=== PATIENT | female | born 1965 | race Caucasian/White ===

== ENCOUNTER 2018-03-24 08:59 | Inpatient (IN) | payer BC, SELFPAY ==
[2018-03-24] MEDS ORDERED: Acetaminophen 500 MG TAB ONE (10:32)
--- NOTE | 2018-03-24 11:27 | RAD ---
SINGLE VIEW OF THE PELVIS: COMPARISON: None. HISTORY: Mechanical fall this morning with right hip pain. FINDINGS: A single view of the pelvis shows abnormal trabecular pattern in the region of the right femoral neck likely secondary to a minimally displaced right femoral neck fracture. No dislocation is seen. IMPRESSION: Femoral neck fracture. POS: QAMAR
--- NOTE | 2018-03-24 11:28 | RAD ---
TWO VIEWS RIGHT HIP: HISTORY: Mechanical fall this morning with hip pain. FINDINGS: Two views right hip show an impaction fracture of the right femoral neck. No dislocation of the femo ral head is seen. No soft tissue swelling is seen. IMPRESSION: Right femoral neck fracture. POS: DARIEN
[2018-03-24 11:53] LABS: #Basophils 0.1 thou/uL (0.0-0.2); #Eosinphils 0.1 thou/uL (0.0-0.7); %Basophils 0.6 % (0.0-1.0); %Eosinophils 0.8 % (0.0-10.0); %Lymphocytes 15.2 % (21.0-51.0); %Monocytes 7.8 % (0.0-10.0); %Neutrophils 75.6 % (42.0-75.0); Hemoglobin 14.5 g/dL (12.0-16.0); Mean Corpuscular HGB CONC 32.9 g/dL (32.0-36.0); Mean Corpuscular Hemoglobin 30.4 pg (27.0-31.0); Mean Corpuscular Volume 92.3 fL (78.0-98.0); Mean Platelet Volume 9.5 fL (7.4-10.4); Platelet Count 282 thou/uL (130-400); RBC Distribution Width 11.5 % (11.5-14.5); Red Blood Cell (RBC) Count 4.78 mill/uL (4.20-5.40); White Blood Cell (WBC) Count 13.3 thou/uL (4.8-10.8)
[2018-03-24 12:05] LABS: PTT 30.8 SEC (22.9-36.1); Prothrombin Time 13.6 SEC (12.0-14.7)
[2018-03-24 12:20] LABS: ALT (SGPT) 26 U/L (8-55); AST (SGOT) 23 U/L (5-34); Albumin 4.4 g/dL (3.5-5.0); Alkaline Phosphatase 106 U/L (40-150); Anion Gap 16 mmol/L (10-20); BUN (Urea Nitrogen) 15 mg/dL (9.8-20.1); Bilirubin, Total 0.4 mg/dL (0.2-1.2); Calc. Creatinine Clearance 0 mL/min (70-130); Calcium 9.8 mg/dL (7.8-10.44); Carbon Dioxide 23 mmol/L (22-29); Chloride 105 mmol/L (98-107); Estimated GFR-MDRD 73; Glucose 108 mg/dL (70-105); Potassium 3.6 mmol/L (3.5-5.1); Protein, Total 7.4 g/dL (6.0-8.3); Sodium 140 mmol/L (136-145)
[2018-03-24] MEDS ORDERED: Fentanyl 100 MCG/2 ML VIAL ONE ×3 (12:40→15:40)
[2018-03-24] MEDS ORDERED: Morphine 4 MG/ML VIAL SLOW IVP PRN (13:51)
[2018-03-24] MEDS ORDERED: Ondansetron PF 4 MG/2 ML Vial IVP PRN (13:51)
[2018-03-24] MEDS ORDERED: Promethazine HCl 25 MG/ML VIAL IM PRN ×2 (13:51→15:38)
[2018-03-24] MEDS ORDERED: Dextrose 50% Abboject 50 ML SYRINGE SLOW IVP PRN (13:51)
[2018-03-24] MEDS ORDERED: Dextrose 5% in Water 1,000 ML IV PRN (13:51)
[2018-03-24] MEDS ORDERED: hydrALAZINE 20 MG/ML VIAL SLOW IVP PRN (13:51)
[2018-03-24] MEDS ORDERED: Morphine 2 MG/ML SYRINGE SLOW IVP PRN (13:51)
[2018-03-24] MEDS ORDERED: CEFAZOLIN/Water 2 GM/20 ML SYRINGE SLOW IVP SCH ×2 (14:15→15:30)
[2018-03-24] MEDS ORDERED: CEFAZOLIN 2 GM/50 ML BAG ONE (14:21)
[2018-03-24] MEDS ORDERED: CEFAZOLIN 2 GM/50 ML-DEXTROSE 2 GM in Premix Bag 1 BAG IVPB SCH (14:30)
[2018-03-24] MEDS: Sodium Chloride 0.9% 1,000 ML IV SCH ×2 (14:35→23:02)
[2018-03-24] MEDS ORDERED: HYDROmorphone 2 MG/ML VIAL ONE (15:29)
--- NOTE | 2018-03-24 15:31 | RAD ---
TWO VIEWS OF THE RIGHT HIP 03/24/18 COMPARISON: 03/24/18 at 10:47 a.m. HISTORY: Right femoral neck fracture status post pinning. FINDINGS/IMPRESSION: Multiple limited intraoperative fluoroscopic views of the right hip were submitted for interpretation . There are three screws placed spanning the right femoral neck fracture. No perihardware lucency is seen. POS: DARIEN
[2018-03-24] MEDS ORDERED: HYDROmorphone 2 MG/ML VIAL SLOW IVP PRN (15:38)
[2018-03-24] MEDS ORDERED: Promethazine HCl 25 MG/ML VIAL SLOW IVP PRN (15:38)
[2018-03-24] MEDS ORDERED: Ondansetron HCl/PF 4 MG/2 ML Vial IVP PRN (15:38)
[2018-03-24] MEDS ORDERED: PACU-Morphine 4MG/ML VIAL SLOW IVP PRN (15:38)
[2018-03-24] MEDS ORDERED: Ketorolac Tromethamine 30 MG/ML VIAL ONE ×2 (15:40→16:16)
--- NOTE | 2018-03-24 15:42 | CON ---
DATE OF CONSULTATION: 03/24/2018 CHIEF COMPLAINT: Right hip pain. HISTORY OF PRESENT ILLNESS: Michelle is a 52-year-old female who was up late last night approximately 2:30 in the morning. She slipped on water. She fell on a hard tile floor. She landed on her right hip. She had immediate pain in the hip. She was able to arise and take a few steps. However, she had severe pain. She was then able to carry on after that. She did get back to bed. This morning she had ongoing pain and was taken to the emergency department. X-rays demonstrated a femoral neck fracture. She has been admitted to the hospital. Currently, resting comfortably. No other injuries or problems. At baseline, she ambulates well with no assistive device. She is very active. PAST MEDICAL HISTORY: Hypertension. PAST SURGICAL HISTORY: None. MEDICATIONS: Lisinopril. ALLERGIES: EGGS. NO KNOWN DRUG ALLERGIES. FAMILY MEDICAL HISTORY: Noncontributory. REVIEW OF SYSTEMS: Positive for right leg pain. Otherwise, negative 10 point review of systems. DIAGNOSTIC DATA: X-rays of the right hip demonstrate a valgus impacted femoral neck fracture with minimal displacement. PHYSICAL EXAMINATION: VITAL SIGNS: Stable. She is afebrile, normotensive, alert and oriented, lying supine, in no apparent distress. RESPIRATORY: Breathing comfortably. ABDOMEN: Soft, nontender, nondistended. MUSCULOSKELETAL: The patient's right lower extremity has pain with motion. She is able to flex and extend the foot and ankle. Skin is intact. Warm and well perfused leg. Palpable pulses distally. Upper extremities are atraumatic. IMPRESSION: Right valgus impacted femoral neck fracture in a 52-year-old female. PLAN: At this point, the patient will need to go to the operating room. We will take her today for percutaneous screw fixation to hopefully stabilize her fracture and allow healing. Risks have been reviewed in detail. Risks to include avascular necrosis, nonunion, malunion, hardware pain, need for hardware removal and others. If this fixation fails, she would need a total hip arthroplasty. She is aware of this and wants to proceed. Job ID: [id number]
--- NOTE | 2018-03-24 15:47 | OP ---
DATE OF PROCEDURE: 03/24/2018 PROCEDURE PERFORMED: Percutaneous screw fixation of right femoral neck fracture. PREOPERATIVE DIAGNOSIS: Right valgus impacted femoral neck fracture. POSTOPERATIVE DIAGNOSIS: Right valgus impacted femoral neck fracture. COMPLICATIONS: None. ESTIMATED BLOOD LOSS: 100 mL. ANESTHESIA: General plus local. IMPLANTS: Three 7.3 mm cannulated Synthes screws. INDICATIONS: Ms. Padilla is a 52-year-old female who fell. She fractured the right femoral neck. She was indicated for percutaneous pinning of the femoral neck to stabilize the fracture and hopefully promote healing and early mobilization. Risks have been reviewed in detail. She elected to proceed with the operation. DESCRIPTION OF PROCEDURE: Ms. Martinez was identified in the preoperative holding area. The correct extremity was marked. She was carried to the operating room. She was positioned supine. General anesthesia was induced. A multidisciplinary time-out was performed. The right lower extremity was prepped and draped in sterile fashion. We used intraoperative traction to gently reduce the fracture. At this point, we made a small incision over the lateral thigh. We then inserted three guidewires in an inverted triangle pattern. These were placed in the femoral head appropriately using x-ray guidance. We then measured the guidewires, drilled the guidewires and then placed three cannulated screws. This transfixed the fracture. We took final x-ray images confirming hardware was placed appropriately. There were no complications. We thoroughly irrigated with copious lavage. We then closed with 2-0 Vicryl suture followed by linda for the skin. A sterile dressing was applied at this point. The patient was taken to the recovery room in good condition without complication. Job ID: [id number]
[2018-03-24] MEDS ORDERED: Dexamethasone 20 MG/5 ML VIAL ONE (16:16)
[2018-03-24] MEDS ORDERED: Glycopyrrolate 0.2 MG/ML 5 ML SYRINGE ONE (16:16)
[2018-03-24] MEDS ORDERED: PROPOFOL 200 MG/20 ML VIAL ONE (16:16)
[2018-03-24] MEDS ORDERED: ePHEDrine 50 MG/ML VIAL ONE (16:16)
[2018-03-24] MEDS ORDERED: Ondansetron PF 4 MG/2 ML Vial ONE (16:16)
[2018-03-24] MEDS ORDERED: Rocuronium Bromide 10 MG/ML (10ML VIAL) ONE (16:16)
[2018-03-24] MEDS ORDERED: Lidocaine 1% PF 5 ML VIAL ONE (16:16)
[2018-03-24] MEDS ORDERED: traMADol HCl 50 MG TAB PO PRN (18:19)
[2018-03-24] MEDS ORDERED: Acetaminophen 1,000 MG in Premix Bag 1 BAG IVPB SCH (18:30)
[2018-03-24] MEDS: traMADol HCl 50 MG TAB PO PRN (18:43)
[2018-03-24] MEDS: Senokot S 8.6-50 MG TAB PO SCH (21:57)
[2018-03-24] MEDS: Famotidine/PF 20 mg/2ml Vial SLOW IVP SCH (21:58)
[2018-03-24] MEDS: Ibuprofen 600 MG TAB PO SCH (21:58)
[2018-03-24] MEDS: CEFAZOLIN 2 GM/50 ML-DEXTROSE 2 GM in Premix Bag 1 BAG IVPB SCH (21:59)
[2018-03-25] MEDS: traMADol HCl 50 MG TAB PO PRN ×3 (03:51→15:17)
[2018-03-25] MEDS: Ibuprofen 600 MG TAB PO SCH ×2 (05:57→15:18)
[2018-03-25] MEDS: CEFAZOLIN 2 GM/50 ML-DEXTROSE 2 GM in Premix Bag 1 BAG IVPB SCH (05:58)
[2018-03-25] MEDS: Sodium Chloride 0.9% 1,000 ML IV SCH ×2 (06:04→16:23)
[2018-03-25] MEDS: Senokot S 8.6-50 MG TAB PO SCH (07:47)
[2018-03-25] MEDS: Famotidine/PF 20 mg/2ml Vial SLOW IVP SCH (07:47)
[2018-03-25 08:01] LABS: #Lymphocytes 1.3 thou/uL (1.20-3.40); #Monocytes 0.8 thou/uL (0.11-0.59); #Neutrophils 9.3 thou/uL (1.40-6.50); %Basophils 0.2 % (0.0-1.0); %Eosinophils 0.2 % (0.0-10.0); %Lymphocytes 11.5 % (21.0-51.0); %Monocytes 7.3 % (0.0-10.0); %Neutrophils 80.8 % (42.0-75.0); Hemoglobin 11.7 g/dL (12.0-16.0); Mean Corpuscular HGB CONC 32.1 g/dL (32.0-36.0); Mean Corpuscular Hemoglobin 29.5 pg (27.0-31.0); Mean Platelet Volume 9.6 fL (7.4-10.4); Platelet Count 225 thou/uL (130-400); RBC Distribution Width 11.4 % (11.5-14.5); Red Blood Cell (RBC) Count 3.96 mill/uL (4.20-5.40); White Blood Cell (WBC) Count 11.5 thou/uL (4.8-10.8)
[2018-03-25 08:15] VITALS: TEMP 97.6
[2018-03-25 08:23] LABS: Anion Gap 13 mmol/L (10-20); BUN (Urea Nitrogen) 13 mg/dL (9.8-20.1); Calc. Creatinine Clearance 134 mL/min (70-130); Carbon Dioxide 26 mmol/L (22-29); Chloride 103 mmol/L (98-107); Estimated GFR-MDRD 84; Glucose 105 mg/dL (70-105); Magnesium 1.7 mg/dL (1.6-2.6); Potassium 3.6 mmol/L (3.5-5.1); Sodium 138 mmol/L (136-145)
[2018-03-25] MEDS ORDERED: Polyethylene Glycol 3350 17 GM Packet PO SCH (09:00)
[2018-03-25] MEDS ORDERED: Acetaminophen 500 MG TAB PO SCH (12:00)
[2018-03-25 12:15] VITALS: BP 122/76
[2018-03-25] MEDS ORDERED: Potassium Chloride 20 MEQ in Premix Bag 1 BAG IVPB SCH (12:30)
--- NOTE | 2018-03-25 16:11 | DIS ---
DATE OF ADMISSION: 03/24/2018 DATE OF DISCHARGE: 03/25/2018 ADMISSION DIAGNOSES: Mechanical fall from standing and a right femoral neck fracture. DISCHARGE DIAGNOSES: Mechanical fall from standing with a right femoral neck fracture. CONSULTING PHYSICIAN: Dr. Barfield, Orthopedic Surgery. PROCEDURES: Perc screw fixation to the right femoral neck. HOSPITAL COURSE: The patient is a 52-year-old female patient who reported waking up in the middle of the night to let her dog out and subsequently slipped on a puddle of water in the kitchen. She reported falling on her right hip and immediately felt a significant amount of pain. She was eventually able to get up to a chair and then ambulate afterwards, but came to the emergency department when she reported she was having pain and felt like something was just not right. She was seen evaluated by Trauma and Orthopedic Surgery in the emergency department and was admitted for fixation by Dr. Barfield. She went to the OR on March 24 and received a perc screw fixation of her right femur. Overnight, she had no acute events and during morning time, her pain was well controlled. Physical and occupational therapy saw and evaluated the patient and reported she was safe to go home. Dr. Barfield's team saw the patient as well and agreed. She did receive some electrolyte replacements orally before she was discharged. DISCHARGE DISPOSITION: Home. DISCHARGE CONDITION: Satisfactory. PHYSICAL EXAMINATION: VITAL SIGNS: Temperature 97.6, pulse 60, respirations 18, oxygen saturation 96% on room air, blood pressure 122/76. GENERAL: Well-appearing middle-aged female, sitting up in bed with no signs of acute distress. NEURO: GCS is 15. Alert and oriented x3. Pupils equal, round, and reactive to light. HEART: Regular rate and rhythm. No murmurs, gallops, or rubs. PULMONARY: Equal chest rise and fall. Lung reece clear bilaterally. No signs of acute respiratory distress. GASTROINTESTINAL: Abdomen is soft, nontender, nondistended. EXTREMITIES: Right lower extremity with dressing clean, dry, and intact with no signs of infection. 2+ pulses in all extremities. Gross motor and sensation intact in all extremities. No swelling noted. DISCHARGE INSTRUCTIONS: The patient was discharged with weightbearing as tolerated to her right lower extremity. She was also made aware that she should follow up with Dr. Barfield and to perform activities only as tolerated. Her diet was a regular normal diet with no restrictions. She was also instructed to take her incentive spirometer and use it daily until she is fully mobile. DISCHARGE MEDICATION: Marrero 5/325 one to two tablets p.o. q.6 hours p.r.n. for pain. FOLLOWUP APPOINTMENTS: She is to follow up with Dr. Barfield in Orthopedic Surgery in about two weeks. No need for followup with Dr. Bolden in [facility]uma [facility]. This is merely a summary of the patient's hospitalization. For further details, please see her medical record in its entirety. Job ID: [id number]
--- NOTE | 2018-03-26 07:30 | CON ---
DATE OF CONSULTATION: TRAUMA SURGEON: Dr. Alfredo Bolden. CONSULTING PHYSICIAN: Dr. Barfield, Orthopedic Surgery. HISTORY OF PRESENT ILLNESS: The patient is a 52-year-old female who presented to the emergency department by private vehicle. She reports slipping and falling around 2 o'clock this morning when she stepped in a puddle in her kitchen. She reports falling directly on her right hip and denies hitting her head or loss of consciousness. She also denies anticoagulation use. Initially, the patient was able to get to a chair with her 's help. However, she had a lot of pain with ambulation and eventually came to the emergency department because she reported she just did not feel right. She was evaluated in the emergency department and received x-rays of her pelvis as well as left hip demonstrating that she had a right femoral neck fracture. REVIEW OF SYSTEMS: All additional review of systems negative except as indicated. PAST MEDICAL HISTORY: Positive for hypertension. PAST SURGICAL HISTORY: She has had no other surgeries. 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 She denies tobacco, alcohol, and drug use. MEDICATIONS: 1. Lisinopril. 2. Hydrochlorothiazide. 3. Nexium. ALLERGIES: NO KNOWN DRUG ALLERGIES, BUT SHE IS ALLERGIC TO EGGS. PHYSICAL EXAMINATION: VITAL SIGNS: Heart rate 76, blood pressure 135/42, respirations 18, oxygen saturation 100% on room air. PRIMARY ASSESSMENT: Airway intact. Adequate breath sounds bilaterally. 2+ distal pulses in the radials, femorals, DP, PT's bilaterally. GCS is 15. Gross motor and sensation intact. No lacerations bruises or external bleeding. SECONDARY SURVEY: HEAD: Normocephalic and atraumatic. No gross palpable skull deformities or tenderness. EYES: Pupils 3 to 2 and equal bilaterally. ENT: No hemotympanum. No epistaxis. No septal hematoma. Mid face is stable to manipulation. No blood in the oropharynx. Dentition is intact. No anterior neck trauma. NECK: C-spine no step-offs or deformities, nontender. C-collar not in place. CHEST: Nontender. No crepitus or abrasions or ecchymosis noted. Equal chest rise and fall. ABDOMEN: Soft, nontender, nondistended. PELVIS: Stable to manipulation. Right lateral hip tenderness. No bruising or ecchymosis. RECTAL: Deferred. GENITOURINARY: Deferred. EXTREMITIES: No gross deformity noted. Tenderness to right lateral hip to palpation. No abrasions or ecchymosis noted. 2+ radial, femorals, DP and PT pulses present bilaterally. BACK/SPINE: No step-offs or deformities or tenderness to the palpation of the thoracic or lumbar spine. No abrasions or ecchymosis noted. NEURO: 5/5 strength in the bilateral mobile security architect, plantar flexion and dorsal flexion. Grossly normal sensation x4. LABORATORY DATA: White blood cell count 13.3, hemoglobin 14.5, hematocrit 44.1, platelets 282. INR 1.0. Sodium 140, potassium 3.4, chloride 105, carbon dioxide 23, BUN 15, and creatinine 0.85, glucose 108. DIAGNOSTIC DATA: X-ray of the right hip demonstrated a right femoral neck fracture. X-ray of the pelvis demonstrated a right femoral neck fracture. ASSESSMENT: 1. Status post mechanical fall from standing. 2. Right femoral neck fracture. 3. Hypokalemia. 4. History of hypertension and acid reflux. PLAN: The patient will be evaluated by Orthopedic Surgery Dr. Barfield's team and will go to the OR today. She has been n.p.o. since she arrived to the emergency department. Her last meal was breakfast at around 7:30 this morning. We will hold all of her home medications for now and she will continue to be n.p.o. We will reassess possibly starting home medications as early as tomorrow morning. We will hold chemo DVT prophylaxis at this time in preparation for OR, but will resume tomorrow. She will continue to receive IV fluids until she is able to tolerate a p.o. diet postoperatively. Physical and Occupational Therapy will see the patient tomorrow and complete a rehab screening. The patient was seen and examined by Dr. Robb this afternoon in the emergency department. Job ID: [id number]
== END 2018-03-25 15:45 | disposition home or self-care (01) | DRG 482 ==
LOC: ERS 08:59 → SURG A 13:34
PROVIDERS: ADMIT Surgery; ATTEND Surgery
PROC: 0QS604Z Reposition Right Upper Femur with Internal Fixation Device, Open Approach (ICD-10-PCS; principal; 2018-03-24)
DX: S72.001A Fracture of unspecified part of neck of right femur, initial encounter for closed fracture (principal); W19.XXXA Unspecified fall, initial encounter; E87.6 Hypokalemia; I10 Essential (primary) hypertension; K21.9 Gastro-esophageal reflux disease without esophagitis
CPT/HCPCS: 36415; 72170; 76000; 80048; 80053; 83735; 84100; 85025; 85610; 85730; 96374; C1713; C1769; J0131; J1100; J1170; J1885; J2001; J2270; J2405; J2704; J3010; J3480; J3490; S0028

== ENCOUNTER 2021-02-03 13:55 | Outpatient (CLI) | payer BC | END 2021-02-03 13:56 | disposition home or self-care (01) | LOC: BICMAMMO 13:55 | PROVIDERS: ATTEND Internal Medicine | DX: Z12.31 Encounter for screening mammogram for malignant neoplasm of breast (principal); Z80.3 Family history of malignant neoplasm of breast | CPT/HCPCS: 77063; 77067 ==

== ENCOUNTER 2022-08-17 13:59 | Outpatient (CLI) | payer BC ==
[2022-08-17 14:45] LABS: #Basophils 0.1 10x3/uL (0.0-0.2); #Monocytes 0.3 10x3/uL (0.0-1.1); #Neutrophils 8.4 10x3/uL (1.5-8.4); %Basophils 0.6 % (0.0-2.0); %Eosinophils 0.1 % (0.0-6.0); %Lymphocytes 10.8 % (18.0-47.0); %Monocytes 3.3 % (0.0-10.0); %Neutrophils 84.9 % (40.0-75.0); Hemoglobin 13.1 g/dL (12.0-15.5); Mean Corpuscular HGB CONC 32.4 g/dL (32.0-36.0); Mean Corpuscular Hemoglobin 29.7 pg (27.0-33.0); Mean Corpuscular Volume 91.6 fl (81.6-98.3); Mean Platelet Volume 11.1 fl (7.4-10.4); Platelet Count 323 10x3/uL (150-450); RBC Distribution Width 11.9 % (11.5-14.5); Red Blood Cell (RBC) Count 4.41 10x6/uL (3.90-5.03); White Blood Cell (WBC) Count 9.9 10x3/uL (3.5-10.5)
[2022-08-17 14:59] LABS: Prothrombin Time 10.7 sec (9.5-12.1)
[2022-08-17 15:07] LABS: Anion Gap 14 mmol/L (10-20); BUN (Urea Nitrogen) 20 mg/dL (9.8-20.1); Calc. Creatinine Clearance 0 mL/min (70-130); Calcium 9.6 mg/dL (7.8-10.44); Carbon Dioxide 27 mmol/L (22-29); Chloride 103 mmol/L (98-107); Estimated GFR 84; Glucose 131 mg/dL (70-105); Potassium 3.6 mmol/L (3.5-5.1); Sodium 140 mmol/L (136-145)
== END 2022-08-17 14:00 | disposition home or self-care (01) ==
LOC: LABBT 13:59
PROVIDERS: ATTEND Orthopaedic Surgery
DX: Z01.818 Encounter for other preprocedural examination (principal); M16.51 Unilateral post-traumatic osteoarthritis, right hip
CPT/HCPCS: 80048; 85025; 85610; 87081; 93005; 93010

== ENCOUNTER 2022-08-22 05:38 | Day surgery (SDC) | payer BC ==
[2022-08-17 14:20] VITALS: BMI 38.9
[2022-08-22] MEDS ORDERED: fentaNYL PF 100 MCG/2 ML SYRINGE ONE (06:22)
[2022-08-22] MEDS ORDERED: Bupivacaine PF 0.5% 30 ML VIAL ONE (06:27)
[2022-08-22] MEDS ORDERED: fentaNYL 50 mcg/mL 1 mL Vial ONE ×3 (06:39→09:26)
[2022-08-22] MEDS ORDERED: Midazolam HCl 2 mg/2 ml Vial ONE (06:39)
[2022-08-22] MEDS ORDERED: Lidocaine 1% (PF) 30 ML VIAL ONE (06:39)
[2022-08-22] MEDS ORDERED: Ropivacaine 0.5% HCl/PF (150 MG/30 ML VIAL) ONE (06:39)
[2022-08-22] MEDS ORDERED: Sodium Chloride 0.9% 100 ML ONE ×2 (06:40→06:59)
[2022-08-22] MEDS ORDERED: Tranexamic Acid 1,000 MG/10 ML VIAL ONE (06:40)
[2022-08-22] MEDS ORDERED: Vancomycin (BATCH) 1.5 GRAM/300 ML BAG ONE (06:41)
[2022-08-22] MEDS ORDERED: CEFAZOLIN 2 GM VIAL ONE (06:59)
[2022-08-22] MEDS ORDERED: ePHEDrine Sulfate 50 MG/10 ML VIAL ONE (07:14)
[2022-08-22] MEDS ORDERED: Lidocaine 1% PF 5 ML VIAL ONE (07:14)
[2022-08-22] MEDS ORDERED: Ondansetron PF 4 MG/2 ML Vial ONE (07:14)
[2022-08-22] MEDS ORDERED: Propofol 500 MG/50 ML VIAL ONE (07:50)
[2022-08-22] MEDS ORDERED: Promethazine HCl 25 MG/ML VIAL IM PRN (08:28)
[2022-08-22] MEDS ORDERED: Meperidine HCl/PF 25 MG/ML VIAL SLOW IVP PRN (08:28)
[2022-08-22] MEDS ORDERED: Ondansetron HCl/PF 4 MG/2 ML Vial IVP PRN (08:28)
[2022-08-22] MEDS ORDERED: HYDROmorphone 0.5 MG/0.5 ML SYRINGE ONE (09:43)
[2022-08-22] MEDS ORDERED: HYDROcodone/Acetaminophen 5/325 mg Tablet ONE (10:56)
[2022-08-22] MEDS ORDERED: Ketorolac Tromethamine 30 MG/ML VIAL ONE (13:59)
== END 2022-08-22 14:25 | disposition home or self-care (01) ==
LOC: SDC 05:38
PROVIDERS: ATTEND Orthopaedic Surgery
PROC: 0SPA0JZ Removal of Synthetic Substitute from Right Hip Joint, Acetabular Surface, Open Approach (ICD-10-PCS; principal; 2022-08-22)
PROC: 0SR90JZ Replacement of Right Hip Joint with Synthetic Substitute, Open Approach (ICD-10-PCS; principal; 2022-08-22)
DX: S72.001D Fracture of unspecified part of neck of right femur, subsequent encounter for closed fracture with routine healing (principal); T84.84XA Pain due to internal orthopedic prosthetic devices, implants and grafts, initial encounter; M17.11 Unilateral primary osteoarthritis, right knee; M16.51 Unilateral post-traumatic osteoarthritis, right hip; I10 Essential (primary) hypertension; Z79.899 Other long term (current) drug therapy; Y83.1 Surgical operation with implant of artificial internal device as the cause of abnormal reaction of the patient, or of later complication, without mention of misadventure at the time of the procedure
CPT/HCPCS: C1776; J1170; J1885; J2001; J2250; J2405; J2704; J2795; J3010; J3370; J3490; S0020

== ENCOUNTER 2023-04-12 11:36 | Outpatient (CLI) | payer BC | END 2023-04-12 11:37 | disposition home or self-care (01) | LOC: BICMAMMO 11:36 | PROVIDERS: ATTEND Family Medicine | DX: Z12.31 Encounter for screening mammogram for malignant neoplasm of breast (principal); Z80.3 Family history of malignant neoplasm of breast | CPT/HCPCS: 77063; 77067 ==

== ENCOUNTER 2025-01-24 08:01 | Outpatient (CLI) | payer OTHER | END 2025-01-24 08:02 | disposition home or self-care (01) | LOC: CT 08:01 | PROVIDERS: ATTEND Orthopaedic Surgery | DX: Z01.818 Encounter for other preprocedural examination (principal); M17.11 Unilateral primary osteoarthritis, right knee ==

== ENCOUNTER 2025-01-30 05:50 | Observation (INO) | payer BC ==
[2025-01-24 08:48] VITALS: BMI 40.4
[2025-01-30] MEDS ORDERED: Vancomycin HCl 1.5 GM VIAL ONE (06:11)
[2025-01-30] MEDS ORDERED: Tranexamic Acid 1,000 MG/10 ML VIAL ONE (06:11)
[2025-01-30] MEDS ORDERED: PROPOFOL 20 ML ONE ×2 (06:25→08:57)
[2025-01-30] MEDS ORDERED: Bupivacaine 0.25% HCL 30 ML VIAL ONE (06:35)
[2025-01-30] MEDS ORDERED: CEFAZOLIN 2 GM VIAL ONE (06:58)
[2025-01-30] MEDS ORDERED: HYDROcodone/Acetaminophen 10/325 mg Tablet PO PRN ×3 (07:30→08:59)
[2025-01-30] MEDS ORDERED: Ropivacaine 0.2% 550 ML 550 ML NERVE BLCK SCH (07:30)
[2025-01-30] MEDS ORDERED: Ondansetron PF 4 MG/2 ML Vial ONE (07:45)
[2025-01-30] MEDS ORDERED: PHENYLEPHRINE-NS 100 MCG/ML 10 ML SYRINGE ONE (07:45)
[2025-01-30] MEDS ORDERED: Ketamine In 0.9 % NaCl 50 MG/5 ML SYRINGE ONE (07:52)
[2025-01-30] MEDS ORDERED: Lidocaine 1% (PF) 30 ML VIAL ONE (08:42)
[2025-01-30] MEDS ORDERED: Ropivacaine 0.5% HCl/PF (150 MG/30 ML VIAL) ONE (08:42)
[2025-01-30] MEDS ORDERED: Ondansetron PF 4 MG/2 ML Vial IVP PRN (08:59)
[2025-01-30] MEDS ORDERED: HYDROmorphone 0.5 MG/0.5 ML SYRINGE ONE ×3 (09:14→10:00)
[2025-01-30] MEDS: Aspirin 81 mg Enteric Coated Tablet PO SCH (12:00)
[2025-01-30] MEDS: Multivitamin W/ Minerals 1 TAB PO SCH (12:00)
[2025-01-30] MEDS: Ferrous Gluconate 324 MG TAB PO SCH (12:00)
[2025-01-30] MEDS: Pantoprazole 40 MG DR.TAB PO SCH (12:01)
[2025-01-30] MEDS: Senokot S 8.6-50 MG TAB PO SCH (12:01)
[2025-01-30] MEDS: Ketorolac Tromethamine 30 MG (1 mL) VIAL IVP SCH ×2 (12:06→15:21)
[2025-01-30] MEDS: HYDROcodone/Acetaminophen 10/325 mg Tablet PO PRN (15:27)
[2025-01-30] MEDS: Acetaminophen 325 MG TAB PO PRN (17:26)
[2025-01-31 04:59] LABS: Hematocrit 30.7 % (36.0-47.0); Hemoglobin 9.7 g/dL (12.0-16.0); Mean Corpuscular Hemoglobin 29.0 pg (27.0-31.0); Mean Corpuscular Volume 91.9 fL (78.0-98.0); Platelet Count 205 10x3/uL (130-400); Red Blood Cell (RBC) Count 3.34 mill/uL (4.20-5.40); White Blood Cell (WBC) Count 9.64 10x3/uL (4.8-10.8)
[2025-01-31] MEDS: Pantoprazole 40 MG DR.TAB PO SCH (08:06)
[2025-01-31] MEDS: Ondansetron PF 4 MG/2 ML Vial IVP PRN (10:02)
[2025-01-31 11:24] VITALS: BP 101/63; TEMP 98.1
[2025-01-31] MEDS: diphenhydrAMINE 25 MG CAP PO PRN (14:47)
== END 2025-01-31 14:54 | disposition home or self-care (01) ==
LOC: SDC 05:50 → SURG A 11:09 → SDC 13:00 → SURG A 13:02
PROVIDERS: ADMIT Orthopaedic Surgery; ATTEND Orthopaedic Surgery
PROC: 0SRC0JZ Replacement of Right Knee Joint with Synthetic Substitute, Open Approach (ICD-10-PCS; principal; 2025-01-30)
DX: M17.11 Unilateral primary osteoarthritis, right knee (principal); Z91.0120 Allergy to eggs, unspecified; Z98.890 Other specified postprocedural states
CPT/HCPCS: 0055T; 27447; 64448; 36415; 85027; A4306; C1713; C1776; C1889; J0169; J0665; J1171; J1885; J2003; J2250; J2405; J2704; J2795; J3010; J3490; J7030